=== PATIENT | male | born 1960 | race Caucasian/White ===

== ENCOUNTER → 2020-10-15 | Outpatient (CLI) | payer BC ==
--- NOTE | 2020-10-15 10:54 | RAD ---
EXAMINATION: US ABDOMEN LTD 10/15/2020 9:51 AM INDICATION: Abnormal LFTs TECHNIQUE: Ramos scale and color Doppler ultrasound images of the right upper quadrant were obtained. COMPARISON: None. FINDINGS: Liver: The liver is normal in size measuring 14.7 cm in length. Normal hepatic echogenicity. No foc al liver lesion. Gallbladder: The gallbladder is normal in caliber. No cholelithiasis or sludge. The gallbladder wa ll is normal in thickness measuring 2 mm. Bile ducts: The common bile duct is normal measuring 2 mm. No intrahepatic biliary duct dilatation. Right kidney: The right kidney measures 10.3 x 4.8 x 5.0 cm. Normal cortical thickness and echogenic ity. No hydronephrosis. Other: Abdominal aorta and inferior vena cava are normal where visualized. The pancreas is not well visualized. IMPRESSION: Normal right upper quadrant ultrasound. Electronically signed by: Mirna Escalante MD (10/15/2020 10:52 AM) [id number]
== END ==
LOC: US 09:47
PROVIDERS: ATTEND Internal Medicine
DX: R94.5 Abnormal results of liver function studies (principal)
CPT/HCPCS: 76705

== ENCOUNTER → 2020-12-16 | Outpatient (CLI) | payer BC ==
--- NOTE | 2020-12-16 13:39 | RAD ---
EXAM: Head CT without contrast. HISTORY: Syncope. TECHNIQUE: Computed tomographic images of the head were obtained without contrast. *One or more of the following individualized dose reduction techniques were utilized for this examina tion: 1. Automated exposure control. 2. Adjustment of the mA and/or kV according to patient size. 3. Use of iterative reconstruction technique. COMPARISON: None. FINDINGS: There is no acute or subacute extra-axial or intraparenchymal hemorrhage. There is no mass effect or midline shift. There is no hydrocephalus. The sands-white matter differentiation pattern is intact. There is mild multilevel asymmetry in the si ze of the right greater than left lateral ventricles. There is ethmoid sinus mucosal thickening. The mastoid air cells are clear. There is no calvarial lesion. The visualized portions of the orbits, paranasal sinuses and mastoid air cells are unremarkable. No s uspicious calvarial lesion is seen. IMPRESSION: No acute intracranial findings. Electronically signed by: Ivelisse Neri MD (12/16/2020 1:37 PM) [facility]
== END ==
LOC: CT 11:15
PROVIDERS: ATTEND Internal Medicine
DX: R55 Syncope and collapse (principal); J34.89 Other specified disorders of nose and nasal sinuses
CPT/HCPCS: 70450

== ENCOUNTER → 2021-01-20 | Outpatient (CLI) | payer BC ==
--- NOTE | 2021-01-20 15:17 | CARD ---
MR#: [id number] Date of Study: 01/20/2021 Ordering Physician: PHYLLIS RODNEY, Referring Physician: PHYLLIS RODNEY, Tech: Danica Glover, [facility] APPROVED REPORT EXAM: Two-dimensional and M-mode echocardiogram with Doppler and color Doppler. Other Information Quality : AverageHR: 70bpm INDICATION Syncope RISK FACTORS Hypertension Hyperlipidemia Smoking 2D DIMENSIONS RVDd3.1 (2.9-3.5cm)Left Atrium(2D)3.8 (1.6-4.0cm) IVSd0.9 (0.7-1.1cm)Aortic Root(2D)3.2 (2.0-3.7cm) LVDd5.4 (3.9-5.9cm)LVOT Diameter2.1 (1.8-2.4cm) PWd0.9 (0.7-1.1cm)LVDs3.7 (2.5-4.0cm) FS (%) 30.9 %SV81.4 ml LVEF(%)58.1 (>50%) Aortic Valve AoV Peak Jhoan.136.0cm/sAoV VTI32.7cm AO Peak GR.7.4mmHgLVOT Peak Jhoan.94.1cm/s LVOT VTI 19.73cmAO Mean GR.4mmHg NIMA (VMAX)2.01je4RJW (VTI)2.06cm2 Mitral Valve MV E Obqsiayx155.1cm/sMV DECEL OPDB513iv MV A Rcwzhxib01.0cm/sE/A Ratio1.2 Pulmonary Valve PV Peak Ifhrenlm52.4cm/sPV Peak Grad.3mmHg Pulmonary Vein S1 Lvcydsqz95.3cm/sD2 Bkijlsmn35.0cm/s LEFT VENTRICLE The left ventricle is normal size. There is normal left ventricular wall thickness. The left ventricu lar systolic function is normal. The Ejection Fraction is 55-60%. There is normal LV segmental wall m otion. RIGHT VENTRICLE The right ventricle is normal size. There is normal right ventricular wall thickness. The right ventr icular systolic function is normal. ATRIA The left atrium size is normal. The right atrium is borderline dilated. The interatrial septum is int act with no evidence for an atrial septal defect or patent foramen ovale as noted on 2-D or Doppler i jeff. AORTIC VALVE The aortic valve is thickened but opens well. Doppler and Color Flow revealed no significant aortic r egurgitation. There is no significant aortic valvular stenosis. Calculated aortic valve area is 2.1 c m2 with maximum pressure gradient of 8 mmHg and mean pressure gradient of 4 mmHg. MITRAL VALVE The mitral valve is normal in structure and function. There is no evidence of mitral valve prolapse. There is no mitral valve stenosis. Doppler and Color-flow revealed trace mitral regurgitation. TRICUSPID VALVE The tricuspid valve is normal in structure and function. Doppler and Color Flow revealed no tricuspid valve regurgitation noted. There is no tricuspid valve stenosis. PULMONIC VALVE The pulmonic valve is not well visualized. Doppler and Color Flow revealed no pulmonic valvular regur gitation. GREAT VESSELS The aortic root is normal in size. The IVC is normal in size and collapses >50% with inspiration. PERICARDIAL EFFUSION There is no evidence of significant pericardial effusion. Critical Notification Critical Value: No <Conclusion> The left ventricular systolic function is normal. The Ejection Fraction is 55-60%. There is normal LV segmental wall motion. Trace mitral regurgitation. There is no evidence of significant pericardial effusion. Signed by : Barrie Olmos, Electronically Approved : 01/20/2021 15:16:23
== END ==
LOC: ECHO 13:56
PROVIDERS: ATTEND Internal Medicine
DX: R55 Syncope and collapse (principal)
CPT/HCPCS: 93306